=== PATIENT | male | born 1950 | race Caucasian/White ===

== ENCOUNTER 2021-02-24 00:04 | Emergency (ER) | payer MEDICARE ==
[2021-02-24] MEDS ORDERED: Thiamine HCl 200 MG/2 ML VIAL ONE (00:38)
[2021-02-24] MEDS ORDERED: Pantoprazole 40 MG VIAL ONE (00:38)
[2021-02-24] MEDS ORDERED: Ondansetron PF 4 MG/2 ML Vial ONE (00:38)
[2021-02-24 01:02] LABS: #Basophils 0.1 thou/uL (0.0-0.2); #Eosinphils 0.1 thou/uL (0.0-0.7); #Lymphocytes 2.3 thou/uL (1.20-3.40); #Monocytes 0.8 thou/uL (0.11-0.59); #Neutrophils 9.6 thou/uL (1.40-6.50); %Basophils 0.7 % (0.0-1.0); %Eosinophils 0.7 % (0.0-10.0); %Lymphocytes 17.7 % (21.0-51.0); %Monocytes 5.9 % (0.0-10.0); Hemoglobin 15.9 g/dL (14.0-18.0); Mean Corpuscular HGB CONC 35.2 g/dL (32.0-36.0); Mean Corpuscular Hemoglobin 32.9 pg (27.0-31.0); Mean Corpuscular Volume 93.6 fL (78.0-98.0); Mean Platelet Volume 7.5 fL (7.4-10.4); Platelet Count 230 thou/uL (130-400); RBC Distribution Width 11.9 % (11.5-14.5); Red Blood Cell (RBC) Count 4.83 mill/uL (4.70-6.10); White Blood Cell (WBC) Count 12.8 thou/uL (4.8-10.8)
[2021-02-24 01:19] LABS: ALT (SGPT) 73 U/L (8-55); AST (SGOT) 93 U/L (5-34); Albumin 4.3 g/dL (3.4-4.8); Alkaline Phosphatase 63 U/L (40-110); Anion Gap 21 mmol/L (10-20); BUN (Urea Nitrogen) 13 mg/dL (8.4-25.7); Bilirubin, Total 0.5 mg/dL (0.2-1.2); Calcium 10.1 mg/dL (7.8-10.44); Carbon Dioxide 21 mmol/L (23-31); Chloride 99 mmol/L (98-107); Globulin 3.1 g/dL (2.4-3.5); Glucose 153 mg/dL (80-115); Lipase 34 U/L (8-78); Magnesium 1.9 mg/dL (1.6-2.6); Protein, Total 7.4 g/dL (5.8-8.1); Sodium 137 mmol/L (136-145)
[2021-02-24 01:20] LABS: Bilirubin Negative (Negative); Blood, Urine Trace (Negative); Clarity Clear (Clear); Glucose, Urine (Dipstick) Negative (Negative); Ketone, Urine Trace mg/dL (Negative); Leukocyte Small (Negative); Nitrite Negative (Negative); Protein, Urine (Dipstick) Negative (Neg-Trace); Specific Gravity, Urine 1.025 (1.005-1.030); Urobilinogen 0.2 mg/dL (Less than 2)
[2021-02-24 01:33] LABS: RBC/HPF None Seen HPF (0-3); Squamous Epithelial None Seen HPF (0-3)
[2021-02-24 01:34] LABS: Bacteria/HPF Rare-Few HPF (None Seen)
[2021-02-24 01:38] LABS: Calc. Creatinine Clearance 0 mL/min (70-130)
[2021-02-24] MEDS ORDERED: Fentanyl 100 MCG/2 ML VIAL ONE (01:45)
[2021-02-24] MEDS ORDERED: cefTRIAXone\\ROCEPHIN 2 GM VIAL ONE (02:28)
[2021-02-24] MEDS ORDERED: Lorazepam 2 MG/ML VIAL ONE (03:16)
== END 2021-02-24 03:30 | disposition home or self-care (01) ==
LOC: BURERS 00:04
DX: N39.0 Urinary tract infection, site not specified (principal); F10.20 Alcohol dependence, uncomplicated; K52.9 Noninfective gastroenteritis and colitis, unspecified
CPT/HCPCS: 74177; 80053; 81003; 81015; 83690; 83735; 84484; 85025; 87077; 87086; 87186; 93005; 96365; 96367; 96375; C9113; J0696; J2060; J2405; J3010; J3411

== ENCOUNTER 2021-03-02 10:29 | Emergency (ER) | payer MEDICARE ==
[2021-03-02] MEDS ORDERED: Iopamidol 370 76% 100 ML VIAL IV ONE (10:30)
[2021-03-02 11:36] LABS: Hemoglobin 15.7 g/dL (14.0-18.0); Mean Corpuscular HGB CONC 33.5 g/dL (32.0-36.0); Mean Corpuscular Hemoglobin 31.7 pg (27.0-31.0); Mean Corpuscular Volume 94.5 fL (78.0-98.0); Mean Platelet Volume 7.8 fL (7.4-10.4); Platelet Count 221 thou/uL (130-400); RBC Distribution Width 11.7 % (11.5-14.5); Red Blood Cell (RBC) Count 4.96 mill/uL (4.70-6.10); White Blood Cell (WBC) Count 7.9 thou/uL (4.8-10.8)
[2021-03-02 11:49] LABS: ALT (SGPT) 70 U/L (8-55); AST (SGOT) 79 U/L (5-34); Albumin 4.3 g/dL (3.4-4.8); Alkaline Phosphatase 57 U/L (40-110); Anion Gap 18 mmol/L (10-20); BUN (Urea Nitrogen) 7 mg/dL (8.4-25.7); Bilirubin, Total 0.3 mg/dL (0.2-1.2); Calc. Creatinine Clearance 0 mL/min (70-130); Calcium 9.5 mg/dL (7.8-10.44); Carbon Dioxide 16 mmol/L (23-31); Chloride 103 mmol/L (98-107); Globulin 3.2 g/dL (2.4-3.5); Glucose 109 mg/dL (80-115); Lipase 54 U/L (8-78); Magnesium 2.1 mg/dL (1.6-2.6); Potassium 3.6 mmol/L (3.5-5.1); Protein, Total 7.5 g/dL (5.8-8.1); Sodium 133 mmol/L (136-145)
[2021-03-02 12:19] LABS: Band 3 % (5-11); Lymphocytes 11 % (21-51); MDiff Complete? YES; Monocytes 16 % (0-10); Neutrophil 68 % (42-75); Platelet Morphology Comment Appears Adequate; RBC Morphology Normal; Reactive Lymphocytes 2 % (0-10)
[2021-03-02] MEDS ORDERED: Thiamine HCl 200 MG/2 ML VIAL ONE ×2 (12:32→12:33)
[2021-03-02] MEDS ORDERED: Pantoprazole 40 MG VIAL ONE (12:32)
[2021-03-02 12:50] LABS: SARS-CoV-2 NAA Rapid Test Not Detected (NotDetected)
[2021-03-02 13:43] LABS: Bilirubin Negative (Negative); Blood, Urine Negative (Negative); Clarity Clear (Clear); Glucose, Urine (Dipstick) Negative (Negative); Ketone, Urine Negative (Negative); Leukocyte Negative (Negative); Nitrite Negative (Negative); Protein, Urine (Dipstick) Negative (Neg-Trace); Urobilinogen 0.2 mg/dL (Less than 2)
[2021-03-02] MEDS ORDERED: Multivit, Adult Inj 10 ML VIAL ONE ×2 (15:01→15:08)
[2021-03-02] MEDS ORDERED: Magnesium 2 GM/50 ML BAG (IN WATER) ONE (15:13)
[2021-03-02] MEDS ORDERED: Lorazepam 2 MG/ML VIAL ONE (15:15)
[2021-03-02] MEDS ORDERED: hydrOXYzine 25 MG TAB ONE (21:37)
[2021-03-02] MEDS ORDERED: risperiDONE 0.5 MG TAB PO SCH (21:45)
[2021-03-02] MEDS ORDERED: Thiamine 100 MG TAB PO SCH (22:00)
[2021-03-03] MEDS ORDERED: Thiamine 100 MG TAB PO SCH (08:15)
[2021-03-03] MEDS ORDERED: Magnesium Oxide 400 MG TAB PO SCH (08:15)
[2021-03-03] MEDS ORDERED: Folic Acid 1 MG TAB PO SCH (08:15)
[2021-03-03] MEDS ORDERED: Magnesium 2 GM/50 ML BAG (IN WATER) ONE (09:33)
[2021-03-03] MEDS ORDERED: Multivit, Therapeutic 1 TAB PO SCH (10:15)
[2021-03-03] MEDS ORDERED: Lorazepam 0.5 MG TAB ONE ×2 (10:46→10:48)
== END 2021-03-02 13:45 | disposition short-term general hospital (02) ==
LOC: BURERS 10:29
DX: E86.0 Dehydration (principal); F10.20 Alcohol dependence, uncomplicated; B96.21 Shiga toxin-producing Escherichia coli [E. coli] [STEC] O157 as the cause of diseases classified elsewhere; Z20.822 Contact with and (suspected) exposure to COVID-19
CPT/HCPCS: 0240U; 74177; 80053; 81003; 82962; 83690; 83735; 85025; 87045; 87046; 87324; 87427 ×2; 87449 ×2; 93005; 96361; 96365; 96366; 96375; 99285; 36416; 87081; C9113; J2060; J3411; J3475; J3490; Q9967

== ENCOUNTER 2024-12-26 15:58 | Emergency (ER) | payer MEDICARE ==
[~2024-12-26 15:58] MED LIST: Iopamidol 370 76% 100 ML VIAL ONE
[2024-12-26 16:22] LABS: Hematocrit 42.3 % (42.0-52.0); Hemoglobin 15.3 g/dL (14.0-18.0); Mean Corpuscular Hemoglobin 31.3 pg (27.0-31.0); Mean Corpuscular Volume 86.3 fl (78.0-98.0); Platelet Count 226 10x3/uL (130-400); Red Blood Cell (RBC) Count 4.90 mill/uL (4.70-6.10); White Blood Cell (WBC) Count 16.0 10x3/uL (4.8-10.8)
[2024-12-26] MEDS ORDERED: Ondansetron PF 4 MG/2 ML Vial ONE (16:25)
[2024-12-26 16:37] LABS: ALT (SGPT) 24 U/L (Less than 45); AST (SGOT) 29 U/L (11-34); Albumin 3.4 g/dL (3.1-4.5); Alkaline Phosphatase 77 U/L (40-110); Anion Gap 17 mmol/L (10-20); BUN (Urea Nitrogen) 15 mg/dL (8.4-25.7); Bilirubin, Total 1.0 mg/dL (0.3-1.2); Calc. Creatinine Clearance 0 mL/min (70-130); Calcium 9.4 mg/dL (7.8-10.44); Carbon Dioxide 25 mmol/L (23-31); Chloride 96 mmol/L (98-107); Globulin 4.5 g/dL (2.4-3.5); Glucose 133 mg/dL (83-110); Lipase 17 U/L (8-78); Potassium 3.5 mmol/L (3.5-5.1); Sodium 134 mmol/L (136-145)
[2024-12-26 16:50] LABS: MDiff Complete? YES
[2024-12-26 18:04] LABS: Glucose, Urine (Dipstick) Negative (Negative); Leukocyte Moderate (Negative); Protein, Urine (Dipstick) Negative (Neg-Trace); Specific Gravity, Urine Less/Equal 1.005 (1.005-1.030)
[2024-12-26 18:13] LABS: Bacteria/HPF 3+ HPF (None Seen); CAUTI Indications for Culture Dysuria,urgency,freq; RBC/HPF 0-3 HPF (0-3); WBC/HPF 21-50 HPF (0-3)
[2024-12-26 18:14] LABS: Urine Culture Reflex Yes Yes
[2024-12-26] MEDS ORDERED: cefTRIAXone (ROCEPHIN) 1 GM VIAL ONE (18:39)
== END 2024-12-26 19:12 | disposition home or self-care (01) ==
LOC: BURERS 15:58
DX: N10 Acute pyelonephritis (principal); Z79.899 Other long term (current) drug therapy
CPT/HCPCS: 36415; 74177; 80053; 81001; 83605; 83690; 85025; 87040; 87077; 87086; 87186; 96361; 96374; 96375; J0696; J3360; Q9967